=== PATIENT | male | born 1940 | race Two or more races ===

== ENCOUNTER 2023-10-14 09:37 | Emergency (ER) | payer OTHER ==
[~2023-10-14] VITALS: Ht 167.6 cm; Wt 59.0 kg
[2023-10-14] MEDS ORDERED: KETOROLAC TROMETHAMINE 60 MG VIAL IM SCH (12:15)
[2023-10-14] MEDS ORDERED: cloNIDine HCL 0.2 MG TABLET PO STA (15:45)
== END 2023-10-14 17:21 | disposition home or self-care (01) ==
LOC: ER 09:37
DX: S20.224A Contusion of middle back wall of thorax, initial encounter (principal); W18.39XA Other fall on same level, initial encounter; Y93.89 Activity, other specified; Y92.89 Other specified places as the place of occurrence of the external cause
CPT/HCPCS: 72070; 96372; 99283; J1885

== ENCOUNTER 2023-11-20 08:52 | Inpatient (IN) | payer OTHER ==
[~2023-11-20] VITALS: Ht 165.1 cm; Wt 59.0 kg
[2023-11-20] MEDS ORDERED: 0.9 % SODIUM CHLORIDE 1,000 ML IV SCH (10:00)
[2023-11-20 10:08] LABS: HEMATOCRIT 44.9 % (39.0-48.0); HEMOGLOBIN 15.4 g/dL (13-16.00); MEAN CELL VOLUME 93.5 fL (80.0-100.00); MEAN CORPUSCULAR HGB CONC 34.2 g/dl (32.0-36.0); PLATELET COUNT 247 K/uL (150-450); RED CELL DISTRIBUTION WIDTH 13.8 % (11.5-14.5)
[2023-11-20 10:29] LABS: CALCIUM 9.7 mg/dL (8.5-10.1); CREATININE SERUM 1.44 mg/dL (0.70-1.30); GFR 47.08; POTASSIUM 3.56 mEq/L (3.5-5.1)
[2023-11-20 13:55] LABS: PH,URINE 7.5 (5.0-8.0); URINE APPEARANCE Clear; URINE BILIRRUBIN Negative (NEGATIVE); URINE BLOOD Moderate; URINE COLOR Yellow; URINE GLUCOSE Negative (NEGATIVE); URINE LEUKOCYTE Trace; URINE NITRATE Negative; URINE PROTEIN 30 (NEGATIVE); URINE UROBILINOGEN 0.2 E.U./dl
[2023-11-20 14:00] LABS: URINE BACTERIA 154.9 uL (0.0-1933); URINE EPITHELIAL CELLS 7.5 uL (0.0-38.8); URINE RBC 272.7 uL (0.0-20.8); URINE WBC 73.5 uL (0.0-23.2)
[2023-11-20] MEDS ORDERED: SODIUM CHLORIDE 0.45 % 1,000 ML IV SCH (19:45)
[2023-11-20] MEDS ORDERED: LOSARTAN POTASSIUM 50 MG TABLET PO SCH (19:52)
[2023-11-20] MEDS ORDERED: CEFTRIAXONE SODIUM 2,000 MG in 0.9 % SODIUM CHLORIDE 100 ML IV SCH (19:53)
[2023-11-20] MEDS ORDERED: AMLODIPINE BESYLATE 5 MG TABLET PO SCH (19:53)
[2023-11-20] MEDS ORDERED: ACETAMINOPHEN 500 MG GEL..CAP PO PRN (20:00)
[2023-11-20] MEDS ORDERED: ONDANSETRON HCL 4 MG in 0.9 % SODIUM CHLORIDE 50 ML IV PRN (20:00)
[2023-11-20] MEDS ORDERED: MORPHINE SULFATE 4 MG/ML VIAL IV PRN (20:00)
[2023-11-20] MEDS ORDERED: hydrALAZINE HCL 20 MG VIAL IV PRN (20:00)
[2023-11-20] MEDS ORDERED: ORPHENADRINE CITRATE 30 MG/ML AMPUL IV SCH (21:00)
[2023-11-20] MEDS ORDERED: FAMOTIDINE/PF 20 MG in 0.9 % SODIUM CHLORIDE 8 ML IV PUSH SCH (21:00)
[2023-11-20 22:06] LABS: CKMB 1.7 NG/ML (0.5-3.6)
[2023-11-21 05:58] LABS: ALBUMIN 3.2 gm/dL (3.4-5.0); BILIRUBIN TOTAL 0.64 mg/dL (0.3-1.2); BILIRUBIN,CONJUGATED 0.21 mg/dL (0.0-0.2); BILIRUBIN,UNCONJUGATED 0.43 mg/dL (0.0-0.6); C-REACTIVE PROTEIN 8.8 MG/DL (0.00-0.29); CALCIUM 9.4 mg/dL (8.5-10.1); CKMB 2.2 NG/ML (0.5-3.6); CREATININE SERUM 1.04 mg/dL (0.70-1.30); GFR 68.54; GLOBULINA 4.4 G/DL (2.4-3.5); POTASSIUM 3.25 mEq/L (3.5-5.1); TOTAL PROTEIN 7.6 gm/dL (6.4-8.2)
[2023-11-21 07:45] LABS: HEMATOCRIT 44.1 % (39.0-48.0); HEMOGLOBIN 15.2 g/dL (13-16.00); MEAN CELL VOLUME 93.4 fL (80.0-100.00); MEAN CORPUSCULAR HEMOGLOBIN 32.1 pg (27.00-32.0); MEAN CORPUSCULAR HGB CONC 34.4 g/dl (32.0-36.0); PLATELET COUNT 267 K/uL (150-450); RED BLOOD COUNT 4.72 M/uL (4.00-6.00)
[2023-11-21 08:31] LABS: INR 1.1; PARTIAL THROMBOPLASTIN TIME 31.8 SECONDS (22.0-34.0); PROTHROMBIN TIME 11.5 SECONDS (9.0-11.5)
[2023-11-21 08:37] LABS: ERYTHROCYTE SEDIMENTATION RATE 56 mm/hr
[2023-11-21] MEDS ORDERED: AMLODIPINE BESYLATE 10 MG TABLET PO SCH (09:00)
[2023-11-21] MEDS ORDERED: LOSARTAN POTASSIUM 100 MG TABLET PO SCH (09:00)
[2023-11-22 07:25] LABS: PH,URINE 6.5 (5.0-8.0); URINE APPEARANCE Clear; URINE BILIRRUBIN Negative (NEGATIVE); URINE BLOOD Negative; URINE COLOR Yellow; URINE GLUCOSE Negative (NEGATIVE); URINE LEUKOCYTE Negative; URINE NITRATE Negative; URINE PROTEIN Trace (NEGATIVE); URINE UROBILINOGEN 0.2 E.U./dl
[2023-11-22 07:27] LABS: URINE BACTERIA 11.3 uL (0.0-1933); URINE RBC 42.5 uL (0.0-20.8); URINE WBC 19.3 uL (0.0-23.2)
[2023-11-22 07:56] LABS: URINE EPITHELIAL CELLS 0.6 uL (0.0-38.8)
[2023-11-22] MEDS ORDERED: hydrALAZINE HCL 25 MG TABLET PO SCH (09:00)
[2023-11-22] MEDS ORDERED: SPIRONOLACTONE 50 MG TABLET PO SCH (09:00)
== END 2023-11-24 16:48 | disposition home or self-care (01) | DRG 690 ==
LOC: ER 08:52 → MEDI 20:45
PROVIDERS: Emergency Medicine; General Practice; ADMIT Internal Medicine; ATTEND Internal Medicine
PROC: BW28ZZZ Computerized Tomography (CT Scan) of Head (ICD-10-PCS; principal; 2023-11-20)
PROC: B24BZZZ Ultrasonography of Heart with Aorta (ICD-10-PCS; 2023-11-20)
PROC: B345ZZZ Ultrasonography of Bilateral Common Carotid Arteries (ICD-10-PCS; 2023-11-20)
PROC: 4A12X4Z Monitoring of Cardiac Electrical Activity, External Approach (ICD-10-PCS; 2023-11-21)
PROC: BW38ZZZ Magnetic Resonance Imaging (MRI) of Head (ICD-10-PCS; 2023-11-22)
DX: N39.0 Urinary tract infection, site not specified (principal); S06.0XAA Concussion with loss of consciousness status unknown, initial encounter; F05 Delirium due to known physiological condition; R44.2 Other hallucinations; I16.9 Hypertensive crisis, unspecified
CPT/HCPCS: 70544

== ENCOUNTER 2023-12-21 11:08 | Outpatient (CLI) | payer OTHER | END 2023-12-21 11:13 | disposition home or self-care (01) | LOC: MRI 11:08 | PROVIDERS: ATTEND Internal Medicine Cardiovascular Disease | DX: M12.9 Arthropathy, unspecified (principal); M40.47 Postural lordosis, lumbosacral region | CPT/HCPCS: 72146 ==